=== PATIENT | male | born 1980 | race Caucasian/White ===

== ENCOUNTER 2017-04-09 20:23 | Emergency (ER) | payer SELFPAY ==
--- NOTE | ~2017-04-09 | CR21 ---
[facility] [[email or web address] [facility] A Service of [facility] & [facility] RADIOLOGY TEXT RESULTS PATIENT: MARLA CARCAMO LOCATION: SED : 76 UNIT #: [id number] AGE: [address]: Oleg Varma MD SEX: M ORDER DR: [id number] [address] [address] [id number] E MR#: [id number] Acc #: [id number] NAME: MARLA CARCAMO. : 1980 SEX: M STUDY DATE/TIME: 04/09/2017 20:56 UNIT: SED ROOM: STUDY DESCRIPTION: CR Ankle Min 3 Views Rt Attending Physician: Oleg Varma M.D. Ordering Physician: Oleg Varma M.D. Primary Care Physician: No Primary Care Physician MEDICAL IMAGING REPORT This report is preliminary unless electronic signature is present. EXAM Right ankle series, 04/09/17 COMPARISON STUDIES Right foot series dated 04/09/17 HISTORY Pain, swelling and bruising of the right ankle and right foot since yesterday after trauma FINDINGS Three views of the right ankle were obtained. Soft tissue swelling is noted overlying the lateral malleolus without any underlying acute displaced fracture or dislocation. Talar dome and ankle mortis are intact. Dictated by... Erick Alvarez M.D. THIS IS AN ELECTRONICALLY VERIFIED REPORT Erick Alvarez M.D. at 04/10/2017 2:25 PM CPR/ea TD: 04/09/2017 23:31 JOB #: [id number] MEDICAL IMAGING REPORT Page 1 of 1
--- NOTE | ~2017-04-09 | CR127 ---
[facility]. [facility] A Service [facility] RADIOLOGY TEXT RESULTS PATIENT: MARLA CARCAMO LOCATION: SED : 76 UNIT #: [id number] AGE: [address]: Oleg Varma MD SEX: M ORDER DR: [id number] [place] [id number] E MR#: [id number] Acc #: [id number] NAME: MARLA CARCAMO. : 1980 SEX: M STUDY DATE/TIME: 04/09/2017 20:56 UNIT: SED ROOM: STUDY DESCRIPTION: CR Foot Complete Min 3 View Rt Attending Physician: Oleg Varma M.D. Ordering Physician: Oleg Varma M.D. Primary Care Physician: Primary Care Physician No MEDICAL IMAGING REPORT This report is preliminary unless electronic signature is present. EXAM Right foot series, 04/09/2017 COMPARISON Right ankle series dated 04/09/2017. HISTORY Status post trauma yesterday with right ankle and right foot pain, swelling and bruising. FINDINGS Three views of the right foot were obtained. The tarsal, metatarsal, and phalangeal elements are all anatomically normal in position and alignment. There are no articular defects. No fractures or radiopaque foreign bodies in the soft tissues are apparent. Refer to right ankle series. IMPRESSION Normal foot. Dictated by... Erick Alvarez M.D. THIS IS AN ELECTRONICALLY VERIFIED REPORT Erick Alvarez M.D. at 04/10/2017 2:25 PM CPR/ljd TD: 04/09/2017 23:34 JOB #: [id number] [facility]. [facility] A Service [facility] RADIOLOGY TEXT RESULTS PATIENT: MARLA CARCAMO LOCATION: SED : [birth year] UNIT #: [id number] AGE: [address]: Oleg Varma MD SEX: M ORDER DR: MEDICAL IMAGING REPORT Page 1 of 1
[~2017-04-09 20:23] MED LIST: LORTAB 5-325 M1 EACH PO; NO MEDICATIONS
== END 2017-04-09 22:30 | disposition home or self-care (01) ==
LOC: SED 20:23
DX: S93.401A Sprain of unspecified ligament of right ankle, initial encounter (principal); F17.200 Nicotine dependence, unspecified, uncomplicated; X50.1XXA Overexertion from prolonged static or awkward postures, initial encounter; Y92.009 Unspecified place in unspecified non-institutional (private) residence as the place of occurrence of the external cause
CPT/HCPCS: 29540; 73610; 73630; 99283